=== PATIENT | male | born 1980 | race Caucasian/White ===

== ENCOUNTER 2024-03-23 15:51 | Emergency (ER) | payer BC, SELFPAY ==
[2024-03-23 15:52] VITALS: BP 133/86; PULSE 57; RESP 18; TEMP 36.5; O2SAT 98
--- NOTE | 2024-03-23 16:00 | DI.RAD_ITS ---
Exam(s) XR CLAVICLE RT EXAM: XR CLAVICLE RT CLINICAL HISTORY: Trauma TECHNIQUE: 2D digital imaging was performed of the right clavicle. Two images were obtained. AP and axial views were obtained. COMPARISON: No exams were available for comparison FINDINGS: BONES: There is an acute comminuted fracture of the midshaft of the right clavicle. There is overrid ing of the fracture fragments by 2.5 cm. No bony destructive lesion is seen. JOINTS: No dislocation present. The acromioclavicular joint is intact. SOFT TISSUE: Normal IMPRESSION: Comminuted overriding fracture of the midshaft of the right clavicle. DATA REPOSITORY: RADIATION DOSE DELIVERED:
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
[2024-03-23] MEDS: Ondansetron O.D.T. 4 MG TABEF PO (16:21)
[2024-03-23] MEDS: Ibuprofen 800 MG TAB PO (16:21)
[2024-03-23 18:42] VITALS: BP 133/86; PULSE 57; RESP 18; TEMP 36.5; O2SAT 98
== END 2024-03-23 18:42 | disposition home or self-care (01) ==
PROVIDERS: Emergency Provider Registered Nurse Emergency
DX: S42.021A Displaced fracture of shaft of right clavicle, initial encounter for closed fracture (principal); V18.0XXA Pedal cycle driver injured in noncollision transport accident in nontraffic accident, initial encounter
CPT/HCPCS: 99283; 73000